=== PATIENT | female | born 1985 | race Two or more races ===

== ENCOUNTER 2019-05-30 23:34 | Emergency (ER) | payer MEDICAID, OTHER ==
[~2019-05-30] VITALS: Ht 157.5 cm; Wt 86.1 kg
[2019-05-30 23:41] VITALS: BP 142/90
--- NOTE | 2019-05-30 23:47 | NUR ---
BOND RUNNER: EKG DONE IN TRIAGE
[2019-05-31] MEDS ORDERED: DEXAMETHASONE 4 MG TABLET PO ONE (00:30)
[2019-05-31] MEDS ORDERED: DEXAMETHASONE 4 MG TABLET ONE (00:38)
[2019-05-31] MEDS ORDERED: ACETAMINOPHEN 500 MG TABLET ONE (00:43)
--- NOTE | 2019-05-31 02:15 | NUR ---
Patient/Caregiver given discharge instructions and they have confirmed that they understand the instructions. Patient ambulatory with steady gait.
== END 2019-05-31 02:07 | disposition home or self-care (01) ==
LOC: ED 05-31 00:32
DX: R07.89 Other chest pain (principal); J02.8 Acute pharyngitis due to other specified organisms; B97.89 Other viral agents as the cause of diseases classified elsewhere
CPT/HCPCS: 71045; 87081; 87880; 93005; 99285

== ENCOUNTER 2019-11-19 18:27 | Emergency (ER) | payer MEDICAID ==
[~2019-11-19] VITALS: Ht 157.5 cm; Wt 84.4 kg
[2019-11-19 19:25] LABS: BASOPHILS # (AUTO) 0.05 x10^3/uL (0-0.1); BASOPHILS % (AUTO) 1 % (0-1); EOSINOPHILS # (AUTO) 0.26 x10^3/uL (0-0.4); EOSINOPHILS % (AUTO) 3 % (1-7); LYMPHOCYTES # (AUTO) 2.88 x10^3/uL (1-3.4); LYMPHOCYTES % (AUTO) 38 % (22-44); MD NO; MEAN CORPUSCULAR HEMOGLOBIN 21.2 pg (27.0-34.8); MEAN CORPUSCULAR HGB CONC 31.3 g/dL (32.4-35.8); MONOCYTES # (AUTO) 0.56 x10^3/uL (0.2-0.8); MONOCYTES % (AUTO) 7 % (2-9); NEUTROPHILS # (AUTO) 3.86 x10^3/uL (1.8-6.8); NEUTROPHILS % (AUTO) 51 % (42-75); PLATELET COUNT 351 x10^3/uL (130-400); RED BLOOD COUNT 4.71 x10^6/uL (3.82-5.3)
[2019-11-19 19:37] LABS: ALANINE AMINOTRANSFERASE 23 U/L (12-78); ALBUMIN 3.4 g/dL (3.4-5.0); ANION GAP 8 mmol/L (5-15); CALCIUM 8.2 mg/dL (8.5-10.1); CHLORIDE 111 mmol/L (98-107); CREATININE 0.71 mg/dL (0.55-1.02)
[2019-11-19 19:41] LABS: ALKALINE PHOSPHATASE 95 U/L (45-117); BILIRUBIN,TOTAL 0.3 mg/dL (0.2-1.0); TOTAL PROTEIN 7.5 g/dL (6.4-8.2); TROPONIN I < 0.015 ng/mL (0.000-0.045)
[2019-11-19] MEDS ORDERED: HYDROXYZINE PAMOATE 50MG CAP PO ONE (20:00)
--- NOTE | 2019-11-19 20:22 | NUR ---
LATE ENTRY SUMMARY NOTE: THIS PT WAS DIAGNOSED COVID + ON 11/06. SHE REPORTS FEELING VERY ANXIOUS ABOUT THIS, ALL CONCERNS ADDRESSED AND PT MEDICATED TO MAR. SHE REPORTS CHEST PRESSURE THAT STARTED YESTERDAY AND THAT IT IS MORE DIFFICULT TO BREATHE WHEN LAYING DOWN. SHE'S REMAINED IN BED, CONNECTED TO CARDIAC, BP AND O2 MONITORS. PT HAS BEEN UPDATED ON POC AND ALL QUESTIONS ANSWERED. SHE HAS HER CALL LIGHT IN REACH, WILL CONTINUE TO MONITOR.
--- NOTE | 2019-11-19 20:37 | NUR ---
CT DELAY- WAITING FOR CT ROOM TO BE CLEAN AT 2100 (COVID).
--- NOTE | 2019-11-19 20:58 | NUR ---
PT STATES "I'M GOOD, MY TINGLING IS BETTER, I FEEL BETTER." PT LAYING IN BED, WATCHING TV. AWAITING CT.
--- NOTE | 2019-11-19 21:19 | NUR ---
PT HAS BEEN TO AND FROM IMAGING.
[2019-11-19] MEDS ORDERED: OMNIPAQUE 350 MG/ML, 100ML BOTTLE ONE (21:25)
[2019-11-19 22:02] VITALS: BP 118/58
== END 2019-11-19 22:16 | disposition home or self-care (01) ==
LOC: ED 19:23
DX: B34.9 Viral infection, unspecified (principal); F41.1 Generalized anxiety disorder; R06.02 Shortness of breath; J02.9 Acute pharyngitis, unspecified; R00.0 Tachycardia, unspecified; R07.9 Chest pain, unspecified
CPT/HCPCS: 36415; 71045; 71275; 80053; 84484; 85025; 85379; 93005; 99285; Q9967